=== PATIENT | male | born 1960 | race Caucasian/White ===

== ENCOUNTER 2024-01-18 09:15 | Emergency (ER) | payer SELFPAY ==
[~2024-01-18] VITALS: Ht 180.3 cm; Wt 95.9 kg
[2024-01-18] MEDS ORDERED: AUG875T PO (09:43)
[2024-01-18] MEDS ORDERED: NAPR-746 PO (09:43)
[2024-01-18] MEDS: cefTRIAXone SOD 1,000 MG VL IM ONE (09:43)
[2024-01-18 09:57] VITALS: BP 136/86; PULSE 68; RESP 18; TEMP 97.8; O2SAT 96
== END 2024-01-18 09:58 | disposition home or self-care (01) ==
LOC: ER 09:15
DX: S61.451A Open bite of right hand, initial encounter (principal); Z79.1 Long term (current) use of non-steroidal anti-inflammatories (NSAID); Z79.899 Other long term (current) drug therapy; W55.01XA Bitten by cat, initial encounter; Y93.89 Activity, other specified; Y92.89 Other specified places as the place of occurrence of the external cause; Y99.8 Other external cause status
CPT/HCPCS: 96372; 99283; J0696